=== PATIENT | female | born 1990 | race African-American/Black ===

== ENCOUNTER 2023-03-16 23:28 | Outpatient (CLI) | payer OTHER | END 2023-03-16 23:29 | disposition critical access hospital (66) | LOC: EMS 23:28 | DX: Z04.6 Encounter for general psychiatric examination, requested by authority (principal); R45.851 Suicidal ideations; Z63.0 Problems in relationship with spouse or partner | CPT/HCPCS: A0425; A0429 ==

== ENCOUNTER 2023-03-16 23:46 | Emergency (ER) | payer OTHER ==
[2023-03-17 00:16] LABS: BASOPHILS % (AUTO) 0.3 %; EOSINOPHILS % (AUTO) 0.6 %; HCT - HEMATOCRIT 32.7 % (37.0-47.0); HGB - HEMOGLOBIN 10.8 g/dL (12.0-16.0); LYMPHOCYTES # (AUTO) 1.3 10^3/uL (1.5-3.5); LYMPHOCYTES % (AUTO) 20.3 %; MEAN CORPUSCULAR HEMOGLOBIN 30.9 pg (27.0-31.0); MEAN CORPUSCULAR VOLUME 93.7 fL (81.0-99.0); MEAN PLATELET VOLUME 10.2 fL (7.9-10.8); MONOCYTES # (AUTO) 0.4 10^3/uL (0.0-1.0); MONOCYTES % (AUTO) 6.7 %; NEUTROPHILS # (AUTO) 4.5 10^3/uL (1.5-6.6); NEUTROPHILS % (AUTO) 71.9 %; PLT - PLATELET COUNT 183 10^3/uL (130-450); RED BLOOD COUNT 3.49 10^6/uL (4.20-5.40); WHITE BLOOD COUNT 6.3 x10^3/uL (4.8-10.8)
[2023-03-17 00:18] LABS: BILIRUBIN,URINE NEGATIVE (NEGATIVE); GLUCOSE, URINE (UA) NEGATIVE (NEGATIVE); KETONES,URINE (UA) NEGATIVE (NEGATIVE); LEUKOCYTE ESTERASE, URINE NEGATIVE (NEGATIVE); MUDS CUTOFF CONCENTRATIONS CUTOFF CONC BELOW:; NITRITE,URINE NEGATIVE (NEGATIVE); OCCULT BLOOD,URINE NEGATIVE (NEGATIVE); PH,URINE 6.5 PH (5.0-7.5); PROTEIN,URINE NEGATIVE (NEGATIVE); UROBILINOGEN,URINE 0.2 (NORMAL) E.U./dL (NORMAL)
[2023-03-17 00:22] LABS: CLARITY,URINE CLEAR (CLEAR)
[2023-03-17 00:30] LABS: AMPHETAMINE SCREEN,URINE NEGATIVE (NEGATIVE); BARBITURATE SCREEN,UR NEGATIVE (NEGATIVE); BENZODIAZEPINES SCREEN, URINE NEGATIVE (NEGATIVE); COCAINE SCREEN URINE NEGATIVE (NEGATIVE); METHADONE SCREEN, URINE NEGATIVE (NEGATIVE); METHAMPHETAMINES SCREEN, URINE NEGATIVE (NEGATIVE); OPIATE SCREEN, URINE NEGATIVE (NEGATIVE); OXYCODONE SCREEN, URINE NEGATIVE (NEGATIVE); PROPOXYPHENE SCREEN, URINE NEGATIVE (NEGATIVE); THC CANNABINOID SCREEN, URINE NEGATIVE (NEGATIVE); TRICYCLIC ANTIDEPRESSANT,URINE NEGATIVE (NEGATIVE)
[2023-03-17 00:47] LABS: ALBUMIN 3.9 g/dL (3.2-5.5); ALBUMIN/GLOBULIN RATIO 1.3 (1.0-2.2); ALKALINE PHOSPHATASE 38 IU/L (42-121); ALT ALANINE AMINOTRANSFERASE 9 IU/L (10-60); AST ASPARTATE AMINOTRANSFERASE 14 IU/L (10-42); BILIRUBIN,TOTAL 0.5 mg/dL (0.2-1.0); BUN - BLOOD UREA NITROGEN 8 mg/dL (6-20); CALCIUM 9.2 mg/dL (8.5-10.3); CARBON DIOXIDE - CO2 22 mmol/L (21-32); CHLORIDE 103 mmol/L (101-111); CK- CREATINE KINASE 142 IU/L (30-223); CREATININE 0.6 mg/dL (0.6-1.3); ETOH - ETHANOL < 10.0 mg/dL; GFR - MDRD 140 (>89); GLUCOSE 86 mg/dL (74-104); LIPASE 17 U/L (11-82); MAGNESIUM 1.7 mg/dL (1.7-2.3); POTASSIUM 3.7 mmol/L (3.5-4.5); SODIUM 132 mmol/L (135-145); TOTAL PROTEIN 6.9 g/dL (6.4-8.9)
[2023-03-17 00:50] LABS: ACETAMINOPHEN < 0.1 ug/mL; SALICYLATE < 1.5 mg/dL
--- NOTE | 2023-03-17 01:38 | ED Physician Documentation ---
PD HPI MHE - Stated complaint Stated Complaint: SI - Chief complaint Chief Complaint: MHE - History obtained from History obtained from: Patient, EMS, Police (BRANDON report) - Additional information Additional information: 32yF with no prior mental health history, currently 17 weeks , p/w depression and suicidal thoughts. patient states she is trying to divorce her but he won't sign divorce papers and this has prompted depression and thoughts of suicide, expressing a wish to cut self. patient now denies SI or specific plan, stating she was feeling emotional about her conflict with her . also denies hi/avh and states there are no guns in the home. PD ED PE NORMAL - Vitals Vital signs reviewed: Yes - General General: Alert and oriented X 3, No acute distress, Well developed/nourished - HEENT HEENT: Atraumatic, PERRL, EOMI - Neck Neck: Supple, no meningeal sign - Cardiac Cardiac: RRR - Respiratory Respiratory: No respiratory distress, Clear bilaterally - Abdomen Abdomen: Non tender, Non distended, Other (gravid uterus. FHR 140 on bedside u/s) - Derm Derm: Normal color, Warm and dry - Extremities Extremities: No deformity - Psych Psych: Other (depressed mood. denies active si/hi/avh) Results - Vitals Vitals: Vital Signs - 24 hr 03/16/23 23:53 Temperature 36.7 C Heart Rate 61 Respiratory 16 Rate Blood Pressure 120/74 O2 Saturation 98 Oxygen O2 Source Room air - Labs Labs: Laboratory Tests 03/17/23 03/17/23 03/17/23 00:01 00:11 00:11 WBC 6.3 RBC 3.49 L Hgb 10.8 L Hct 32.7 L MCV 93.7 MCH 30.9 MCHC 33.0 RDW 13.0 Plt Count 183 MPV 10.2 Neut # (Auto) 4.5 Lymph # (Auto) 1.3 L [place] # (Auto) 0.4 Eos # (Auto) 0.0 Baso # (Auto) 0.0 Absolute Nucleated RBC 0.00 Nucleated RBC % 0.0 Sodium 132 L Potassium 3.7 Chloride 103 Carbon Dioxide 22 Anion Gap 7.0 BUN 8 Creatinine 0.6 Estimated GFR (MDRD) 140 Glucose 86 Calcium 9.2 Magnesium 1.7 Total Bilirubin 0.5 AST 14 ALT 9 L Alkaline Phosphatase 38 L Total Creatine Kinase 142 Total Protein 6.9 Albumin 3.9 Globulin 3.0 Albumin/Globulin Ratio 1.3 Lipase 17 TSH Urine Color YELLOW Urine Clarity CLEAR Urine pH 6.5 Ur Specific [place] 1.025 Urine Protein NEGATIVE Urine Glucose (UA) NEGATIVE Urine Ketones NEGATIVE Urine Occult Blood NEGATIVE Urine Nitrite NEGATIVE Urine Bilirubin NEGATIVE Urine Urobilinogen 0.2 (NORMAL) Ur Leukocyte Esterase NEGATIVE Ur Microscopic Review NOT INDICATED Urine Culture Comments NOT INDICATED Salicylates < 1.5 Urine Opiates Screen NEGATIVE Ur Oxycodone Screen NEGATIVE Urine Methadone Screen NEGATIVE Ur Propoxyphene Screen NEGATIVE Acetaminophen < 0.1 Ur Barbiturates Screen NEGATIVE Ur Tricyclics Screen NEGATIVE Ur Phencyclidine Scrn NEGATIVE Ur Amphetamine Screen NEGATIVE U Methamphetamines Scrn NEGATIVE U Benzodiazepines Scrn NEGATIVE Urine Cocaine Screen NEGATIVE U Cannabinoids Screen NEGATIVE Ethyl Alcohol < 10.0 03/17/23 00:11 WBC RBC Hgb Hct MCV MCH MCHC RDW Plt Count MPV Neut # (Auto) Lymph # (Auto) [place] # (Auto) Eos # (Auto) Baso # (Auto) Absolute Nucleated RBC Nucleated RBC % Sodium Potassium Chloride Carbon Dioxide Anion Gap BUN Creatinine Estimated GFR (MDRD) Glucose Calcium Magnesium Total Bilirubin AST ALT Alkaline Phosphatase Total Creatine Kinase Total Protein Albumin Globulin Albumin/Globulin Ratio Lipase TSH 2.46 Urine Color Urine Clarity Urine pH Ur Specific [place] Urine Protein Urine Glucose (UA) Urine Ketones Urine Occult Blood Urine Nitrite Urine Bilirubin Urine Urobilinogen Ur Leukocyte Esterase Ur Microscopic Review Urine Culture Comments Salicylates Urine Opiates Screen Ur Oxycodone Screen Urine Methadone Screen Ur Propoxyphene Screen Acetaminophen Ur Barbiturates Screen Ur Tricyclics Screen Ur Phencyclidine Scrn Ur Amphetamine Screen U Methamphetamines Scrn U Benzodiazepines Scrn Urine Cocaine Screen U Cannabinoids Screen Ethyl Alcohol PD Medical Decision Making - ED course ED course: FHR 140. good movement. patient has large uterine fibroid visible on bedside u/s of which she is aware. 32yF at 17wga presents to the ED with suicidal thoughts and depressed mood related to stressor of refusing to sign divorce papers this past evening. patient has no prior hx mental health issues and is not taking mental health meds. she denies active plan to kill herself. denies Hi/AVH. no access to firearms. She contracts for safety. I do not believe the patient is an imminent threat to self or others at this time and plan is to follow up outpatient. patient has conservation enforcement officer follow up appointment later this morning and also states she will f/u with pcm and behavioral health. return precautions given. Departure - Departure Disposition: Home, Self Care Clinical Impression: Depression Condition: Stable Instructions: ED Depression Comments: You were seen in the ED for depressed thoughts. Please follow up with your global transportation manager this morning as well as your pcm and behavioral health. Return to the ED if you have further thoughts of self harm or suicide, new or worsening symptoms or other concerns. Forms: PCP List
[2023-03-17 01:55] VITALS: BP 139/77
== END 2023-03-17 01:57 | disposition home or self-care (01) ==
LOC: ED 23:46
DX: O99.342 Other mental disorders complicating pregnancy, second trimester (principal); F32.A Depression, unspecified; Z3A.17 17 weeks gestation of pregnancy
CPT/HCPCS: 36415; 80053; 80306; 80307; 80320; 80329; 81001; 81003; 82550; 83690; 83735; 84443; 85025; 87086; 99283

== ENCOUNTER 2023-06-08 22:48 | Outpatient (CLI) | payer OTHER | END 2023-06-08 23:59 | disposition EMS.NT | LOC: EMS 22:48 | DX: O99.891 Other specified diseases and conditions complicating pregnancy (principal); R10.2 Pelvic and perineal pain ==